=== PATIENT | female | born 1935 | race Caucasian/White ===

== ENCOUNTER 2018-05-27 20:11 | Emergency (ER) | payer MEDICARE, MEDICAID ==
[2018-05-27 20:25] VITALS: RESP 20
--- NOTE | 2018-05-27 20:38 | C.PDOC ---
History Of Present Illness 83 year old female presents to the ED c/o right shoulder pain that worsened over the past 3 days. Patient reports that she had been doing chores around the house which she thinks exacerbated her shoulder pain. Patient states she is not able to move her right shoulder now due to pain. Patient denies fever, chills, headache, neck pain, CP, SOB, weakness, numbness, fall, trauma, injury. Time Seen by Provider: 05/27/18 20:16 History Per: Patient History/Exam Limitations: no limitations Onset/Duration Of Symptoms: Days Current Symptoms Are (Timing): Still Present Quality: "Pain" Exacerbating Factor(s): Movement Recent travel outside of the [place]: No Additional History Per: Patient Past Medical History Reviewed: Historical Data, Nursing Documentation, Vital Signs Vital Signs: Last Vital Signs Temp 98.3 F 05/27/18 20:20 Pulse 63 05/27/18 20:20 Resp 20 05/27/18 20:20 BP 156/64 H 05/27/18 20:20 Pulse Ox 96 05/27/18 21:05 - Medical History PMH: HTN, Hypercholesterolemia Denies: Chronic Kidney Disease Surgical History: Appendectomy - [facility] Procedures MEASURE OF CARDIAC SAMPL & PRESSURE, L HEART, PERC APPROACH (12/24/15) PLAIN RADIOGRAPHY OF LEFT HEART USING OTHER CONTRAST (12/24/15) PLAIN RADIOGRAPHY OF MULT COR ART USING OTH CONTRAST (12/24/15) VACCINATION NEC (05/26/15) Family History: States: Unknown Family Hx - Social History Hx Tobacco Use: No Hx Alcohol Use: No Hx Substance Use: No - Immunization History Hx Tetanus Toxoid Vaccination: No Hx Influenza Vaccination: No Hx Pneumococcal Vaccination: No Review Of Systems Constitutional: Negative for: Fever, Chills Cardiovascular: Negative for: Chest Pain, Palpitations Respiratory: Negative for: Cough, Shortness of Breath Gastrointestinal: Negative for: Nausea, Vomiting Musculoskeletal: Positive for: Shoulder Pain. Negative for: Neck Pain Skin: Negative for: Rash Neurological: Negative for: Weakness, Numbness, Headache Physical Exam - Physical Exam Appears: Non-toxic, No Acute Distress Skin: Normal Color, Warm, Dry Head: Atraumatic, Normacephalic Eye(s): bilateral: Normal Inspection Oral Mucosa: Moist Neck: Normal ROM, No Midline Cervical Tenderness, Supple Chest: Symmetrical Cardiovascular: Rhythm Regular Respiratory: Normal Breath Sounds, No Rales, No Rhonchi, No Wheezing Gastrointestinal/Abdominal: Soft, No Tenderness, No Guarding, No Rebound Extremity: Normal ROM (reproducible pain on right shoulder movement. left shoulder normal), Tenderness (diffuse right shoulder ), Capillary Refill (< 2 seconds), No Deformity, No Swelling Pulses: Left Radial: Normal, Right Radial: Normal Neurological/Psych: Oriented x3, Normal Speech, Normal Cognition Gait: Steady ED Course And Treatment O2 Sat by Pulse Oximetry: 96 (ON RA) Pulse Ox Interpretation: Normal Reevaluation Time: 22:13 Reassessment Condition: Improved Medical Decision Making Medical Decision Making: Impression: right shoulder pain Plan: * Tylenol 650 mg PO * Lidoderm 2 ea TD * Ultram 25 mg PO Disposition Counseled Patient/Family Regarding: Diagnosis, Need For Followup, Rx Given - Disposition Referrals: YOUR,PMD [Other] Disposition: HOME/ ROUTINE Disposition Time: 22:13 Condition: IMPROVED Additional Instructions: 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 Prescriptions: Acetaminophen [Tylenol 325mg tab] 650 mg PO Q6 #30 tab Tramadol HCl [Ultram] 25 mg PO QID #20 tab Instructions: Shoulder Pain (DC) Print Language: LAO - Clinical Impression Clinical Impression: Chronic shoulder pain - Scribe Statement The provider has reviewed the documentation as recorded by the Scribe Jeff Hsu All medical record entries made by the Scribe were at my direction and personally dictated by me. I have reviewed the chart and agree that the record accurately reflects my personal performance of the history, physical exam, medical decision making, and the department course for this patient. I have also personally directed, reviewed, and agree with the discharge instructions and disposition.
[2018-05-27] MEDS: Lidocaine 5% Patch TD STA (21:00)
[2018-05-27] MEDS ORDERED: Lidocaine 5% Patch TD ONE (21:30)
[2018-05-27] MEDS ORDERED: Tramadol 25 mg ONE (21:30)
[2018-05-27 22:29] VITALS: BP 133/73; PULSE 62; TEMP 98.1; O2SAT 98
--- NOTE | 2018-05-28 11:28 | CARD ---
APPROVED REPORT Date of service: 05/27/2018 EKG Measurement Heart [id number] <Conclusion> Normal sinus rhythm Minimal voltage criteria for LVH, may be normal variant Possible Inferior infarct, age undetermined Abnormal ECG
== END 2018-05-27 22:24 | disposition home or self-care (01) ==
LOC: C.ER 20:11
DX: M25.511 Pain in right shoulder (principal); G89.29 Other chronic pain; I10 Essential (primary) hypertension